=== PATIENT | female | born 1975 | race Caucasian/White ===

== ENCOUNTER 2017-03-07 05:22 | Emergency (ER) | payer OTHER ==
--- NOTE | 2017-03-07 05:34 | ERNOTE ---
Medical Problem HPI - Narrative Date of Service: 03/07/17 - General Chief Complaint: Nausea/Vomiting Time Seen by Provider: 03/07/17 05:33 Source: patient, family - Immun/Allergies/Home Medications Immunizations: IMMUNIZATION HX Immunizations Up to Date Yes History of Influenza Vaccine No Hx Pneumococcal Vaccination No Allergies/Adverse Reactions: Allergies No Known Allergies Allergy (Verified 03/07/17 05:32) Home Medications: HOME MEDICATIONS Famotidine [Pepcid] 40 mg PO HS #30 tab 03/07/17 [Last Taken Unknown] Ondansetron [Zofran Odt] 4 mg PO Q6H PRN #7 tab 03/07/17 [Last Taken Unknown] - History of Present History Narrative: N & V. STATES IT STARTED ABOUT 2300 LAST NIGHT AND HAS HAD VOMITING " TMTC". SHE SAYS SHE HAS HAD SOME EPIGASTRIC PAIN ALSO. NO FEVER OR CHILLS OR DIARRHEA. NO KNOWN CONTACTS THOUGH WORKS [employer]. NO SUSPICIOUS FOODS, HAD THE SAME THINGS AND IS DOING WELL. DENIES ANY MEDS. NO SMOKING OR DRUGS. OCC ETOH BUT NONE SINCE 2 NIGHTS AGO. GENERALLY WELL. NKA Review of Systems - Review of Systems Constitutional: Present: See HPI EYE: Present: no symptoms reported ENT: Present: no symptoms reported Respiratory: Present: no symptoms reported Cardiology: Present: no symptoms reported Gastrointestinal/Abdominal: Present: See HPI, nausea, vomiting, abdominal pain Genitourinary: Present: no symptoms reported Musculoskeletal: Present: no symptoms reported Skin: Present: no symptoms reported Neurological: Present: no symptoms reported Endocrine: Present: no symptoms reported Hematologic/Lymphatic: Present: no symptoms reported Psych: Present: no symptoms reported All Other Systems: All systems neg except as marked - Patient's Past Medical History Patient History - Medical: Depression, Hypothyroidism, Migraines Patient History - Cardiac/Respiratory: Asthma Patient History - Cancer: No Hx of Cancer Patient History - Surgical Procedures: Other - LEFT BREAST BX. X 2 AND WISDOM TEETH REMOVAL. , Hernia Repair - INGUINAL A CHILD. Patient History - Other: None LMP (Calendar): 11/25/15 - Social History Living Situations: home Abuse History: No History of abuse Psych History: Hx of Depression Smoking Status: Never smoker Alcohol Use: none Drug Use: none - Immunizations Immunizations Up to Date: Yes Hx Pneumococcal Vaccination: No History of Influenza Vaccine: No Physical Exam - Physical Exam General Appearance: Present: wd/wn, alert, moderate distress Ears, Nose, Throat: Absent: dry mucous membranes Respiratory: Present: no respiratory distress, normal breath sounds, no accessory muscle use, chest nontender, lungs clear Cardiovascular/Chest: Present: regular rate, rhythm, no murmur, normal peripheral pulses Gastrointestinal/Abdominal: Present: normal bowel sounds, nondistended, soft, no organomegaly, tenderness - EPIGASTRIC . Absent: rebound, hepatomegaly Back Exam: Present: no CVA tenderness Extremity Exam: Present: normal inspection, no edema Neurological Exam: Present: alert, oriented Skin Exam: Present: normal color, warm/dry ED Progress - Results and Orders Patient's Lab Results:: I have reviewed the patient's lab results. Results and Orders: CBC , CMP ARE WNL WITH WBC ONLY SLIGHTLY ELEVATED AT 11.8K. LIPASE = NL. CRP = 0.2 - Vital Signs Patient's Vital Signs:: I have reviewed the patient's vital signs. Vital Signs: Vital Signs 03/07/17 05:28 Temperature 36.8 C Pulse Rate 73 Respiratory 20 Rate Blood Pressure 132/85 O2 Sat by Pulse 100 Oximetry - X-Ray X-Ray #1 X-Ray: abdomen Interpretation: Interp. by me - Progress/Reassessment Chief Complaint: Nausea/Vomiting Progress:: Re-examined - no vomiting since she has been here but c/o of epigastric pain after bentyl and pepcid. pT BETTER AFTER TORADOL IV. - Transfer of Care Expected Disposition: Discharge Departure - Departure Clinical Impression: Epigastric abdominal pain Vomiting Qualifiers: Vomiting type: unspecified Vomiting Intractability: unspecified Nausea presence : with nausea Qualified Code(s): R11.2 - Nausea with vomiting, unspecified Disposition: Home Follow Up Needed Condition: Good Instructions: Gastritis, Adult, [id number], Nausea and Vomiting, Adult, Easy- to-Read, Esophagitis Additional Instructions: CLEAR LIQUID DIET FOR THE NEXT 24 HOURS. TAKE THE PEPCID DIRECTED. USE ZOFRAN IF NEEDED FOR NAUSEA AND VOMITING. IF NOT IMPROVING RECHECK WITH YOUR FAMILY DOCTOR ON THURSDAY YOU MAY NEED FURTHER EVALUATION. IF HAVING GIVEN YOU INSTRUCTIONS ON GASTRITIS AND ESOPHAGITIS , TWO POSSIBLE CAUSES FOR YOUR SYMPTOMS THOUGH YOU COULD EVEN HAVE GALL BLADDER PROBLEMS WELL. IF NO MORE VOMITING AFTER 24 HRS OF CLEAR LIQUIDS GRADUALLY INCREASE YOUR DIET STARTING WITH SIMPLE SOLIDS FIRST (B.R.A.T. DIET - BANANAS , RICE , APPLESAUCE, TOAST AND SALTINES) AND ADVANCE FROM THERE. Prescriptions: Famotidine [Pepcid] 40 mg PO HS #30 tab Ondansetron [Zofran Odt] 4 mg PO Q6H PRN #7 tab PRN Reason: Vomiting
[2017-03-07] MEDS ORDERED: NORMAL SALINE 1,000 ML IV ONE (05:36)
[2017-03-07] MEDS ORDERED: ONDANSETRON HCL/PF 2 MG/ML VIAL IV ONE (05:36)
[2017-03-07] MEDS ORDERED: ONDANSETRON HCL/PF 2 MG/ML VIAL ONE (05:42)
[2017-03-07 05:48] LABS: Hematocrit 43.2 % (37.0-47.0); Hemoglobin 14.3 gm/dL (12.5-16.0); Mean Cell Volume 87.8 fl (78-100); Mean Corpuscular Hemoglobin 29.1 pg (27-31); Mean Corpuscular Hgb Conc 33.1 g/dl (32-36); Mean Platelet Volume 10.1 fl (6.0-9.5); Neutrophil # 9.7 K/mm3 (1.3-6.0); Neutrophil % 82.7 % (42-75.0); Platelet Count 346 K/mm3 (150-450); Red Blood Count 4.92 M/mm3 (4.2-5.4); Red Cell Distribution Width 12.3 % (11.5-14.0); White Blood Count 11.8 K/mm3 (4.0-10.5)
[2017-03-07] MEDS ORDERED: FAMOTIDINE 10 MG/ML VIAL IV ONE ×2 (05:57→06:16)
[2017-03-07] MEDS ORDERED: DICYCLOMINE HCL 10 MG/ML AMPUL IM ONE ×2 (05:57→06:16)
[2017-03-07 06:02] LABS: Anion Gap 12.7 mmol/L (6.8-13.8); Bilirubin, Total 0.5 mg/dL (0.0-1.1); CRP 0.2 mg/dL (0.0-0.9); Ca. Corrected For Albumin 9.7 mg/dL (8.4-10.2); Carbon Dioxide 32.2 mmol/L (24-32.6); Potassium 3.9 mmol/L (3.4-4.6); Total Protein 7.5 gm/dL (6.2-8.2)
[2017-03-07 06:21] LABS: Urine Bilirubin Negative (NEGATIVE); Urine Blood Negative /ul (NEGATIVE); Urine Ketone 15 mg/dL (NEGATIVE); Urine Nitrite Negative (NEGATIVE); Urine Protein 30 mg/dL (NEGATIVE); Urine Specific Gravity 1.015 SP.GR. (1.005-1.010); Urine Urobilinogen Normal (NORMAL); Urine pH 8.5 pH (5.0-7.0)
[2017-03-07 06:33] LABS: Urine Amorphous Sediment Moderate - 2+ (NONE-FEW); Urine Appearance Cloudy; Urine Bacteria TRACE; Urine Color Yellow; Urine RBC None Seen /hpf (0-5); Urine WBC None Seen /hpf (0-5)
[2017-03-07] MEDS ORDERED: KETOROLAC TROMETHAMINE 30 MG/ML VIAL ONE (06:59)
[2017-03-07] MEDS ORDERED: KETOROLAC TROMETHAMINE 30 MG/ML VIAL IV ONE ×2 (06:59)
[2017-03-07 08:18] VITALS: BP 100/59
== END 2017-03-07 08:34 | disposition home or self-care (01) ==
LOC: ER 05:22
DX: R10.13 Epigastric pain (principal); R11.2 Nausea with vomiting, unspecified
CPT/HCPCS: 36415; 74020; 80053; 81001; 83690; 84703; 85025; 86140; 93005; 96372; 96374; 96375; 99284; J2405